=== PATIENT | male | born 1955 | race Caucasian/White ===

== ENCOUNTER 2024-01-25 18:12 | Emergency (ER) | payer BC, MEDICARE ==
--- NOTE | 2024-01-25 19:57 | CT ---
EXAMINATION TYPE: CT brain cspine wo con CT DLP: 1328.2 mGycm, Automated exposure control for dose reduction was used. DATE OF EXAM: 01/25/2024 6:53 PM COMPARISON: None. CLINICAL INDICATION:Male, 68 years old with history of fall; Fall on thinners TECHNIQUE: Brain: Multiple axial CT images of the brain were obtained without IV contrast. Cspine: Axial CT images from the skull base to the inferior aspect of T2 we obtained without intraven ous contrast. Coronal and sagittal reformatted images were also reviewed. FINDINGS: Brain: Extra-axial spaces: No abnormal extra-axial fluid collections. Ventricular system: Appear dilated in proportion to the degree of cerebral atrophy. Cerebral parenchyma: No increased attenuation to suggest acute intraparenchymal hemorrhage. The gra y-white matter interface appears maintained. Mild/moderate generalized brain atrophy. Scattered hyp oattenuating areas are seen within the cerebral white matter, nonspecific but most often seen with ch ronic microvascular ischemic changes; mild in degree. Cerebellum: No acute abnormality. Possible small remote infarct in the inferior right hemisphere. Mass effect: No evidence of mass effect or midline shift. Intracranial vasculature: Atherosclerotic calcifications of the larger arteries near the skull base. Soft tissues: Scalp laceration over the right forehead with soft tissue swelling and several bubbles of subcutaneous gas extending to the right superior preseptal region. Visualized orbits: Orbital contents appear grossly intact. Calvarium/osseous structures: No evidence of calvarial fracture. Paranasal sinuses and mastoid air cells: Clear. MRI is more sensitive for detecting acute processes such as infarct, and may be considered if clinica lly warranted. Cervical spine: Fracture: None seen. Osseous structures, spinal canal/neural foramina: Status post ACDF with anterior plate and screws and interbody prosthesis at C6-C7. Multilevel degenerative disc disease changes with endplate spurring, disc osteophyte complexes, facet arthropathy; mild/moderate in degree. Multilevel mild to moderate ca nal and foraminal bony stenoses. Canal and contents not well assessed by CT however no large disc pro trusion or other acute abnormality is seen. If there is persistent concern MRI could be obtained for further evaluation. Vertebral alignment: No traumatic malalignment. Preserved normal cervical lordosis. No significant li sthesis. Neck soft tissues: No acute finding.. Calcifications noted involving the cervical carotid arteries mo stly bifurcation regions. Other: Lung apices show no acute infiltrate or pneumothorax. Emphysematous changes with pleural/pare nchymal scarring. IMPRESSION: CT head: 1. No acute intracranial CT abnormality. 2. Scalp laceration over the right forehead with soft tissue swelling and several bubbles of subcutan eous gas extending to the right superior preseptal region. CT cervical spine: 1. No evidence of acute cervical spine fracture or traumatic malalignment. 2. Mild/moderate cervical spondylosis.
--- NOTE | 2024-01-25 20:44 | ED ---
Head Injury HPI - General Chief complaint: Head Injury Stated complaint: fall Time Seen by Provider: 01/25/24 18:24 Source: patient Mode of arrival: ambulatory Limitations: no limitations - History of Present Illness Initial comments: 68-year-old male presenting with chief complaint of facial laceration. Patient tripped and fell hitting his head on the corner of a door jam. He has a 4-1/2 inch laceration to the forehead. Bleeding is well-controlled at this time. He did not lose consciousness and is not on any blood thinners. Unsure when his last tetanus was. No nausea, vomiting, dizziness, vision or hearing changes, numbness, tingling, weakness. - Related Data Previous Rx's Medication Instructions Recorded Bacitracin Zinc Oint 1 applic TOPICAL DAILY #28 gm 01/25/24 Cephalexin [Keflex] 500 mg PO Q12HR 7 Days #14 cap 01/25/24 Allergies/Adverse reactions: Allergies Allergy/AdvReac Type Severity Reaction Status Date / Time No Known Allergies Allergy Verified 01/25/24 18:27 Review of Systems ROS Statement: Those systems with pertinent positive or pertinent negative responses have been documented in the HPI. ROS Other: All systems not noted in ROS Statement are negative. Past Medical History Past Medical History: No Reported History History of Any Multi-Drug Resistant Organisms: None Reported Additional Past Surgical History / Comment(s): Back Past Psychological History: No Psychological Hx Reported Smoking Status: Former smoker Past Alcohol Use History: Occasional Past Drug Use History: None Reported General Exam Limitations: no limitations General appearance: alert, in no apparent distress Expanded Head exam: Present: laceration (4.5in laceration to the right side forehead) Eye exam: Present: PERRL, EOMI, periorbital swelling (Superior to the right eye) Neck exam: Present: normal inspection. Absent: meningismus Respiratory exam: Absent: respiratory distress Cardiovascular Exam: Present: regular rate Neurological exam: Present: alert, oriented X3 Expanded Patient oriented to: Present: person, place, time Speech: Present: fluid speech Cranial nerves: EOM's Intact: Normal Eye Response: (4) open spontaneously Motor Response: (6) obeys commands Verbal Response: (5) oriented Tracy Total: 15 Psychiatric exam: Present: normal affect, normal mood Expanded Type of lesion: Present: laceration Course Vital Signs 01/25/24 18:25 Temperature 98.2 F Pulse Rate 74 Respiratory 20 Rate Blood Pressure 159/75 O2 Sat by Pulse 99 Oximetry Procedures - Laceration Laceration #1 Consent Obtained: verbal consent Indication: laceration Site: face Size (cm): 12 Description: linear Depth: involves muscle layer Anesthetic Used: lidocaine 1%, without epi Anesthesia Technique: local infiltration Pre-repair: wound explored, irrigated extensively Type of Sutures: nylon Size of Sutures: 5-0 Number of Sutures: 16 Technique: simple, interrupted Patient Tolerated Procedure: well Medical Decision Making - Medical Decision Making Was pt. sent in by a medical professional or institution (, PA, GRANTS MANAGER, urgent care, hospital, or prison...) When possible be specific @ -No Did you speak to anyone other than the patient for history (EMS, parent, family, police, friend...)? What history was obtained from this source @ -No Did you review nursing and triage notes (agree or disagree)? Why? @ -I reviewed and agree with nursing and triage notes Were old charts reviewed (outside hosp., previous admission, EMS record, old EKG, old radiological studies, urgent care reports/EKG's, prison records)? Report findings @ -No old charts were reviewed Differential Diagnosis (chest pain, altered mental status, abdominal pain women, abdominal pain men, vaginal bleeding, weakness, fever, dyspnea, syncope, headache, dizziness, GI bleed, back pain, seizure, CVA, palpatations, mental health, musculoskeletal)? @ -Differential includes uncomplicated head injury, concussion, intracranial hemorrhage, fracture, this is not an all-inclusive list EKG interpreted by me (3pts min.). @ -As above X-rays interpreted by me (1pt min.). @ -None done CT interpreted by me (1pt min.). @ -CT shows no acute intracranial CT abnormality. Scalp laceration over the right forehead with soft tissue swelling and several bubbles of subcutaneous gas extending to the right superior preseptal region. No evidence of acute cervical spine fracture or traumatic malalignment. Mild/moderate cervical spondylosis U/S interpreted by me (1pt. min.). @ -None done What testing was considered but not performed or refused? (CT, X-rays, U/S, labs)? Why? @ -None What meds were considered but not given or refused? Why? @ -None Did you discuss the management of the patient with other professionals (professionals i.e. DrZach, PA, [employer]S MANAGER, lab, RT, psych nurse, social contact worker, retail attendant, teacher, administrative hearing officer, hospice case manager)? Give summary @ -No Was smoking cessation discussed for >3mins.? @ -No Was critical care preformed (if so, how long)? @ -No Were there social determinants of health that impacted care today? How? (Homelessness, low income, unemployed, alcoholism, drug addiction, transportation, low edu. Level, literacy, decrease access to med. care, penitentiary, rehab)? @ -No Was there de-escalation of care discussed even if they declined (Discuss DNR or withdrawal of care, Hospice)? DNR status @ -No What co-morbidities impacted this encounter? (DM, HTN, Smoking, COPD, CAD, Cancer, CVA, ARF, Chemo, Hep., AIDS, mental health diagnosis, sleep apnea, morbid obesity)? @ -None Was patient admitted / discharged? Hospital course, mention meds given and route, prescriptions, significant lab abnormalities, going to OR and other pertinent info. @ -68-year-old male presenting with chief complaint of head injury. She tripped and fell into a door jam there is a large laceration to the right side of the forehead. His tetanus is updated today. CT is negative for acute intracranial process or cervical spine fracture. Laceration is repaired. Patient is educated on wound care and signs of infection as well as alarm symptoms around head injury. Sent home on Keflex and provided with bacitracin ointment. Discharged. Follow-up with PCP. Report back to ER with any new or worsening symptoms. Discussed return parameters and answered all questions. Patient conveyed verbal understanding and agreed to the plan. I discussed this case in detail with my attending . Undiagnosed new problem with uncertain prognosis? @ -No Drug Therapy requiring intensive monitoring for toxicity (Heparin, Nitro, Insulin, Cardizem)? @ -No Were any procedures done? @ -Laceration repair Diagnosis/symptom? @ -Head injury, forehead laceration Acute, or Chronic, or Acute on Chronic? @ -Acute Uncomplicated (without systemic symptoms) or Complicated (systemic symptoms)? @ -Uncomplicated Side effects of treatment? @ -No Exacerbation, Progression, or Severe Exacerbation? @ -No Poses a threat to life or bodily function? How? (Chest pain, [place], [place], pneumonia, PE, COPD, DKA, ARF, appy, cholecystitis, CVA, Diverticulitis, Homicidal, Suicidal, threat to staff... and all critical care pts) @ -Unlikely Disposition Clinical Impression: Head injury, Forehead laceration Disposition: HOME SELF-CARE Condition: Good Instructions (If sedation given, give patient instructions): Care For Your Stitches (ED), Head Injury (ED), Head Laceration (ED) Additional Instructions: Follow-up with PCP. Report back to ER with any new or worsening symptoms. Keep the wound clean dry and covered. Wash regularly with soap and water. Avoid fully submerging the wound in water for prolonged periods of time. Monitor for signs of infection, including but not limited to redness, swelling, warmth, tenderness, discharge, fever. Sutures may be removed in 5 to 7 days Prescriptions: Bacitracin Zinc Oint 1 applic TOPICAL DAILY #28 gm Cephalexin [Keflex] 500 mg PO Q12HR 7 Days #14 cap Is patient prescribed a controlled substance at d/c from ED?: No Referrals: Nonstaff,Physician [Primary Care Provider] - 1-2 days Time of Disposition: 20:44
[2024-01-25] MEDS: LIDOCAINE 1% INJ 10MG/ML (20 ML MDV) SQ ONE (20:46)
[2024-01-25] MEDS: DIPH,PERTUS(ACELL)TETVAC-LF 0.5 ML VIAL IM ONE (21:09)
[2024-01-25 21:20] VITALS: BP 159/80; PULSE 71; RESP 18; TEMP 97.9
== END 2024-01-25 21:21 | disposition home or self-care (01) ==
LOC: EC 18:12
CPT/HCPCS: 12015; 70450; 72125; 90471; 90715; 99283